=== PATIENT | female | born 1955 ===

== ENCOUNTER 2024-01-22 08:28 | Day surgery (SDC) | payer MEDICARE, BC ==
[2024-01-22] MEDS: Lactated Ringers 1,000 ML IV SCH (08:58)
== END 2024-01-22 11:00 | disposition home or self-care (01) ==
LOC: CC.SDS 08:28
PROVIDERS: ATTEND Family Medicine
DX: K57.30 Diverticulosis of large intestine without perforation or abscess without bleeding (principal)
CPT/HCPCS: 00811; 88305; J7120